=== PATIENT | male | born 1975 | race Caucasian/White ===

== ENCOUNTER 2016-11-08 03:32 | Emergency (ER) | payer OTHER ==
--- NOTE | 2016-11-08 03:44 | EDPHY ---
H & P HPI/ROS: HPI CHIEF COMPLAINT: Low back pain, I feel like my intestines are going to follow in my rectum HISTORY OF PRESENT ILLNESS: This patient is a very pleasant 41-year-old male no significant medical history and no surgical history presents to the emergency room stating that for the past 2 days he has had low back pain lumbar region and at times has a achy pain that radiates down his left gluteus posterior thigh and across his left anterior thigh to his knee it does not go to his ankle. He denies leg weakness. He denies saddle anesthesia. Denies trauma. Denies new injury to his back. He states 2 days ago developed this back pain lumbar region paravertebral achy sensation went to the gym to loosen up his muscles states that that helped a little bit the pain has improved however he still has persistent pain goes down his left gluteus but not into his leg. States tonight he noticed that his rectum fell loose and he felt as if his test since were going to come out of his rectum. States when he goes to stand up he feels like his intestines are going to come out and that he cannot control his rectal tone. He denies rectal pain bleeding or abdominal pain denies leg weakness numbness or tingling or fever or trauma to his back. Denies decrease in sensation anywhere. Past Medical History: No significant medical history Past Surgical History: No significant surgical history Social History: denies use of drugs alcohol tobacco products lives at work, works in [employer] Family History: noncontributory ROS REVIEW OF SYSTEMS: A comprehensive 10 point review of systems is otherwise negative aside from elements mentioned in the history of present illness. Exam Constitutional triage nursing summary reviewed, vital signs reviewed, awake/ alert. Eyes normal conjunctivae and sclera, EOMI, PERRLA. HENT normal inspection, atraumatic, moist mucus membranes, no epistaxis, neck supple/ no meningismus, no raccoon eyes. Respiratory clear to auscultation bilaterally, normal breath sounds, no respiratory distress, no wheezing. Cardiovascular rate normal, regular rhythm, no murmur, no edema, distal pulses normal. Gastrointestinal soft, non-tender, no rebound, no guarding, normal bowel sounds, no distension, no pulsatile mass. Genitourinary no CVA tenderness. Rectal exam: good rectal tone, no hemorrhoids no discharge normal rectum no saddle anesthesia Musculoskeletal back exam: no midline vertebral tenderness, Does have mild tenderness palpation over the paravertebral muscles in the lumbar region left- sided no midline tenderness, no step-offs full range of motion, no calf swelling , no tenderness of extremities, no meningismus, good pulses, neurovascularly intact. Skin pink, warm, & dry, no rash, skin atraumatic. Neurologic awake, alert and oriented x 3, AAOx3, moves all 4 extremities equally, motor intact, sensory intact, CN II-XII intact, normal cerebellar, normal vision, normal speech. Psychiatric normal mood/affect. Heme/Lymph/Immune no lymphadenopathy. Differential Diagnosis: Includes but is not limited to in a particular order, annular tear, nerve root compression, sciatica, spinal epidural compression given sensation of his intestines coming out of his rectum or loose rectum and low back pain. Medical Decision Making: To the patient's complaint of feeling as if his rectum is loose and low back pain will have an MRI of his lumbar spine to rule out compression of his spinal cord however clinically on exam he has good rectal tone and most likely this is sciatica or nerve root compression. Re-evaluation: MRI of the lumbar spine without IV contrast. The results of the study are no epidural abscess nothing pressing on the spinal cord does have disc disease L5- S1 otherwise unremarkable MRI I discussed the results of this study with the radiologist Dr. Shane Barbosa [id number]: I did re-evaluated this patient at this time is resting comfortably no acute distress. Ambulating well no focal neurological deficit good rectal tone on exam. MRI shows nothing acute. He does show mild L5-S1 disc disease which may be contributing to his sciatica. At time of discharge she did also question about a rash in his groin area appears to be a fungal circumferential round rash 5 cm in appearance most likely fungal infection I will prescribe clotrimazole for this. He also understands follow-up with primary care doctor. Source: Patient Constitutional: Initial Vital Signs Temperature (C) 36.7 C 11/08/16 03:55 Heart Rate 95 11/08/16 03:55 Respiratory Rate 16 11/08/16 03:55 Blood Pressure 129/92 H 11/08/16 03:55 O2 Sat (%) 97 11/08/16 03:55 O2 Delivery Mode Room Air Allergies/Adverse Reactions: No Known Allergies Allergy (Unverified 11/08/16 03:54) Home Medications: Medication Instructions Recorded Clotrimazole 1% [Lotrimin 1%] 12 gm TP BID #1 cream 11/08/16 Hydrocodone/APAP 5/325 [Tamiment 1 - 2 tab PO Q4H PRN #10 tab 11/08/16 5/325] Ibuprofen [Motrin (*)] 800 mg PO Q6-8PRN #10 tab 11/08/16 Departure - Departure Disposition: Home, Routine, Self-Care Clinical Impression: Fungal rash of trunk Low back pain Qualifiers: Chronicity: acute Back pain laterality: left Sciatica presence: with sciatica Sciatica laterality: sciatica of left side Qualifier Code: (M54.42) Lumbago with sciatica, left side Sciatica Qualifiers: Laterality: left Qualifier Code: (M54.32) Sciatica, left side Condition: Good Instructions: Sciatica (ED), Lumbar Radiculopathy (ED) Additional Instructions: 1. Return to the emergency room if develops worsening pain numbness or tingling weakness or questions or concerns. 2. I do recommend he follow up with her primary care doctor. 3.Rest her back use a heating pad. 4. ibuprofen for mild pain Tamiment for severe pain. 5. Be advised that this Tamiment medication can cause sedation do not drive or drink alcohol while taking this. Referrals: NONE *PRIMARY CARE P,. [Primary Care Provider] - As per Instructions Adelaida Rousseau MD [Medical Doctor] - As per Instructions Prescriptions: Clotrimazole 1% [Lotrimin 1%] 12 gm TP BID #1 cream Ibuprofen [Motrin (*)] 800 mg PO Q6-8PRN #10 tab Hydrocodone/APAP 5/325 [Tamiment 5/325] 1 - 2 tab PO Q4H PRN #10 tab PRN Reason: Pain, Moderate
[2016-11-08 03:56] VITALS: TEMP 98.1
[2016-11-08 06:12] VITALS: BP 111/78; PULSE 79; RESP 12; O2SAT 93
--- NOTE | 2016-11-08 09:52 | MR ---
MRI of the Lumbar Spine (Without Contrast) History: Low back pain and left hip pain. Sensation of decreased rectal control. Comparison: None available. Technique: Sagittal and axial T1 and T2 , and sagittal STIR MR sequences of the lumbar spine witho ut contrast. 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 Th ere is trace retrolisthesis of L3 on L4. Vertebral body heights are preserved. There is moderate disk desiccation at T12-L1 and L5-S1. The conus medullaris appears normal and ends at L1-L2. T12-L1: Mild vertebral spondylosis with a small focal left paracentral disk protrusion, with no signi ficant spinal canal narrowing or neural foraminal stenosis. L1-L2: No disk herniation or stenosis. L2-L3: No disk herniation or stenosis. L3-L4: Mild vertebral spondylosis and moderate facet and ligamentum flavum hypertrophy, with a minima l annular bulge, with no significant spinal canal narrowing and mild bilateral neural foraminal steno sis. L4-L5: Mild vertebral spondylosis and moderate facet and ligamentum flavum hypertrophy, with no signi ficant spinal canal narrowing and mild bilateral neural foraminal stenosis. L5-S1: Spondylolytic spondylolisthesis with moderate vertebral spondylosis and moderate facet hypertr ophy with minimal ligamentum flavum hypertrophy, with a mild annular bulge and a small focal central disk protrusion extending superiorly dorsal to L5, with no significant spinal canal narrowing and mod erate right neural foraminal stenosis with possible compression of the exiting L5 nerve root, with mi ld left neural foraminal stenosis. Impression: 1. L5-S1: Grade 1 spondylolytic spondylolisthesis with moderate right neural foraminal stenosis with possible nerve root compression, with mild left neural foraminal stenosis. 2. L3-L4: Mild bilateral neural foraminal stenosis. 3. T12-L1: Small focal left paracentral disk protrusion without significant spinal canal narrowing or neural foraminal stenosis. Please see above findings at specific disk levels. Findings discussed with Frantz Luz today at 0551 hours. The preliminary and final reports were c oncordant.
== END 2016-11-08 06:11 | disposition home or self-care (01) ==
DX: M54.42 Lumbago with sciatica, left side (principal); R21 Rash and other nonspecific skin eruption; B49 Unspecified mycosis